=== PATIENT | male | born 1960 | race Caucasian/White ===

== ENCOUNTER → 2018-12-25 | Outpatient (CLI) | payer OTHER ==
[~2018-12-25] MED LIST: ASPIRIN81 M2 PO; FISH OIL 1,2001 EAC4 PO; LISINOPRIL20 MG PO; MULTIVITAMINS1 EAC7 PO; VITAMIN B-12500 MCG PO; VITAMIN D; VITAMIN D10000 UNIT PO
[2018-12-25 06:41] LABS: POTASSIUM 4.4 mmol/L (3.5-5.1)
== END ==
LOC: M.LAB 04:56
PROVIDERS: Anesthesiology
DX: E87.6 Hypokalemia (principal); E11.9 Type 2 diabetes mellitus without complications